=== PATIENT | female | born 1990 | race Caucasian/White ===

== ENCOUNTER 2021-03-08 19:40 | Emergency (ER) | payer OTHER ==
[~2021-03-08 19:40] MED LIST: BACTRIM 400-801 EACH PO; BACTROBAN OINT22 GM EXT; KEFLEX500 MG PO; OMNICEF 300 MG300 MG PO; OXYCODONE HCL5 MG PO; PREDNISONE 20 M20 MG PO; ZOFRAN4 MG PO
[2021-03-08 20:38] LABS: HEMOGLOBIN 11.9 gm/dl (12.3-15.3); RED BLOOD COUNT 4.41 M/UL (4.00-5.10); WHITE BLOOD COUNT 6.6 K/UL (4.5-11.0)
[2021-03-08 21:06] LABS: BUN/CREATININE RATIO 11 (0-10)
[2021-03-09] MEDS ORDERED: CEFUROXIME500 MG PO (00:43)
== END 2021-03-09 01:46 | disposition short-term general hospital (02) ==
LOC: ER1 19:40
PROVIDERS: Physician Assistant
DX: F32.9 Major depressive disorder, single episode, unspecified (principal); N39.0 Urinary tract infection, site not specified; R45.851 Suicidal ideations; Z20.822 Contact with and (suspected) exposure to COVID-19
CPT/HCPCS: 80053; 80307; 81001; 83690; 84703; 85025; 87086; 99285; G0480; U0002

== ENCOUNTER 2021-04-20 20:39 | Emergency (ER) | payer OTHER ==
[~2021-04-20 20:39] MED LIST changes: +CEFUROXIME500 MG PO
[2021-04-20] MEDS ORDERED: CETIRIZINE HCL10 MG PO (22:43)
[2021-04-20] MEDS ORDERED: MEDROL DOSEPAK 24 MG PO (22:43)
[2021-04-20] MEDS ORDERED: VISTARIL25 MG PO (22:43)
[2021-04-20] MEDS ORDERED: PEPCID20 MG PO (22:43)
== END 2021-04-20 23:10 | disposition home or self-care (01) ==
LOC: ER1 20:39
DX: R21 Rash and other nonspecific skin eruption (principal); Z90.49 Acquired absence of other specified parts of digestive tract; Z79.899 Other long term (current) drug therapy
CPT/HCPCS: 99282; J1100; Q0177

== ENCOUNTER 2021-05-03 05:48 | Emergency (ER) | payer OTHER ==
[~2021-05-03 05:48] MED LIST changes: +CETIRIZINE HCL10 MG PO; +MEDROL DOSEPAK 24 MG PO; +PEPCID20 MG PO; +VISTARIL25 MG PO
[2021-05-03] MEDS ORDERED: VENTOLIN HFA 66.7 GM INH (07:39)
[2021-05-03] MEDS ORDERED: ELIMITE 5% CREA60 GM TOP (07:39)
== END 2021-05-03 07:52 | disposition home or self-care (01) ==
LOC: ER1 05:48
DX: B86 Scabies (principal); Z90.49 Acquired absence of other specified parts of digestive tract
CPT/HCPCS: 99282

== ENCOUNTER → 2021-08-21 04:15 | Emergency (ER) | payer OTHER ==
[~2021-08-21 04:15] MED LIST changes: +ELIMITE 5% CREA60 GM TOP; +VENTOLIN HFA 66.7 GM INH
[2021-08-21 05:04] LABS: HEMOGLOBIN 11.7 gm/dl (12.3-15.3); RED BLOOD COUNT 4.59 M/UL (4.00-5.10); WHITE BLOOD COUNT 8.3 K/UL (4.5-11.0)
== END | disposition home or self-care (01) ==
LOC: ER1 04:15
PROVIDERS: Family Medicine
DX: O26.851 Spotting complicating pregnancy, first trimester (principal); Z3A.12 12 weeks gestation of pregnancy; Z79.899 Other long term (current) drug therapy
CPT/HCPCS: 85025; 99284

== ENCOUNTER 2021-10-06 21:48 | Emergency (ER) | payer OTHER | END 2021-10-07 01:13 | disposition left against medical advice (07) | LOC: ER1 21:48 | DX: U07.1 COVID-19 (principal) | CPT/HCPCS: 0240U; 71045; 99283 ==

== ENCOUNTER 2021-10-16 02:26 | Outpatient (CLI) | payer OTHER | END 2021-10-16 03:49 | disposition home or self-care (01) | LOC: GENOP 02:26 | DX: O99.891 Other specified diseases and conditions complicating pregnancy (principal); R10.30 Lower abdominal pain, unspecified; N89.8 Other specified noninflammatory disorders of vagina; Z3A.20 20 weeks gestation of pregnancy | CPT/HCPCS: 81001; G0463 ==

== ENCOUNTER 2022-01-03 20:37 | Outpatient (CLI) | payer OTHER | END 2022-01-04 10:39 | disposition home or self-care (01) | LOC: GENOP 20:37 | DX: O47.03 False labor before 37 completed weeks of gestation, third trimester (principal); O99.891 Other specified diseases and conditions complicating pregnancy; O36.8130 Decreased fetal movements, third trimester, not applicable or unspecified; O99.343 Other mental disorders complicating pregnancy, third trimester; F32.9 Major depressive disorder, single episode, unspecified; F41.9 Anxiety disorder, unspecified; M54.50 Low back pain, unspecified; R10.9 Unspecified abdominal pain; N89.8 Other specified noninflammatory disorders of vagina; Z3A.32 32 weeks gestation of pregnancy | CPT/HCPCS: 81001; 83518; 96360; 96361; 96367; 96372; J0696; J0702; J7030 ==

== ENCOUNTER 2022-01-16 18:09 | Outpatient (CLI) | payer OTHER | END 2022-01-16 20:55 | disposition short-term general hospital (02) | LOC: GENOP 18:09 | DX: O47.03 False labor before 37 completed weeks of gestation, third trimester (principal); O36.8130 Decreased fetal movements, third trimester, not applicable or unspecified; O99.343 Other mental disorders complicating pregnancy, third trimester; F32.9 Major depressive disorder, single episode, unspecified; F41.9 Anxiety disorder, unspecified; Z3A.33 33 weeks gestation of pregnancy | CPT/HCPCS: 81001; 83518; 96365; 96367; 96372; J0610; J0702; J2540; J3475; J7070 ==

== ENCOUNTER 2022-01-28 11:32 | Outpatient (CLI) | payer OTHER ==
[2022-01-28 11:50] LABS: HEMOGLOBIN 8.6 gm/dl (12.3-15.3); RED BLOOD COUNT 3.98 M/UL (4.00-5.10); WHITE BLOOD COUNT 11.1 K/UL (4.5-11.0)
== END 2022-01-28 14:58 | disposition home or self-care (01) ==
LOC: GENOP 11:32
PROVIDERS: Obstetrics & Gynecology
DX: O47.03 False labor before 37 completed weeks of gestation, third trimester (principal); O34.33 Maternal care for cervical incompetence, third trimester; O99.343 Other mental disorders complicating pregnancy, third trimester; F32.9 Major depressive disorder, single episode, unspecified; F41.9 Anxiety disorder, unspecified; Z3A.35 35 weeks gestation of pregnancy
CPT/HCPCS: 36415; 81001; 85025; 96360; 96361; J7120

== ENCOUNTER 2022-02-06 08:50 | Inpatient (IN) | payer OTHER ==
[~2022-02-06] VITALS: Ht 162.6 cm; Wt 96.2 kg
[2022-02-06 09:54] LABS: HEMOGLOBIN 8.4 gm/dl (12.3-15.3); RED BLOOD COUNT 3.95 M/UL (4.00-5.10)
[2022-02-06] MEDS ORDERED: ZOLOFT50 MG PO (10:51)
[2022-02-06] MEDS ORDERED: PRENATAL VITAM1 EAC3 PO (10:52)
[2022-02-06] MEDS ORDERED: IBUPROFEN600 MG PO (18:12)
[2022-02-06] MEDS ORDERED: DOCUSATE SODIU250 MG PO (18:12)
[2022-02-07 05:00] LABS: HEMOGLOBIN 8.3 gm/dl (12.3-15.3)
== END 2022-02-08 19:15 | disposition home or self-care (01) | DRG 807 ==
LOC: GENOP 08:50 → OB 09:15
PROVIDERS: ADMIT Obstetrics & Gynecology
PROC: 10E0XZZ Delivery of Products of Conception, External Approach (ICD-10-PCS; principal; 2022-02-06)
PROC: 10907ZC Drainage of Amniotic Fluid, Therapeutic from Products of Conception, Via Natural or Artificial Opening (ICD-10-PCS; 2022-02-06)
PROC: 4A1HXCZ Monitoring of Products of Conception, Cardiac Rate, External Approach (ICD-10-PCS; 2022-02-06)
PROC: 3E0234Z Introduction of Serum, Toxoid and Vaccine into Muscle, Percutaneous Approach (ICD-10-PCS; 2022-02-06)
DX: O60.14X0 Preterm labor third trimester with preterm delivery third trimester, not applicable or unspecified (principal); Z37.0 Single live birth; Z3A.36 36 weeks gestation of pregnancy; Z20.822 Contact with and (suspected) exposure to COVID-19; O99.344 Other mental disorders complicating childbirth; F41.9 Anxiety disorder, unspecified; F32.A Depression, unspecified; Z28.310 Unvaccinated for COVID-19; Z83.3 Family history of diabetes mellitus; Z82.49 Family history of ischemic heart disease and other diseases of the circulatory system; Z80.9 Family history of malignant neoplasm, unspecified; Z82.0 Family history of epilepsy and other diseases of the nervous system; Z23 Encounter for immunization
CPT/HCPCS: 36415; 81001; 83518; 85014; 85018; 85025; 90471; 90715; J2405; J2590; J3010; J7120

== ENCOUNTER 2022-04-19 19:36 | Emergency (ER) | payer OTHER ==
[~2022-04-19 19:36] MED LIST changes: +DOCUSATE SODIU250 MG PO; +IBUPROFEN600 MG PO; +PRENATAL VITAM1 EAC3 PO; +ZOLOFT50 MG PO
== END 2022-04-19 23:24 | disposition home or self-care (01) ==
LOC: ER1 19:36
DX: J06.9 Acute upper respiratory infection, unspecified (principal); Z20.822 Contact with and (suspected) exposure to COVID-19; Z90.49 Acquired absence of other specified parts of digestive tract
CPT/HCPCS: 0240U; 71045; 99284